=== PATIENT | male | born 1940 | race Caucasian/White ===

== ENCOUNTER 2016-10-02 10:56 | Inpatient (IN) | payer MEDICARE, OTHER ==
--- NOTE | ~2016-10-02 | HP ---
History And Physical [place] [address] [facility] [place]. [address] NAME: KARI GAMBOA : 38 STATUS : ADM IN PAT#: [id number] AGE: 76 ADM/REG DATE : 10/02/16 MR#: [id number] REPORT SERV DATE: 10/02/16 DICTATED BY: GITA EATON DATE: 10/02/16 REPORT STATUS : Draft TRANSCRIBED BY: MODStephenie DATE: 10/02/16 DATE OF ADMISSION: 10/02/2016 CHIEF COMPLAINT: Brought into the ER today for worsening weakness. HISTORY OF PRESENT ILLNESS: This is a 76-year-old male who says he has not been feeling well, family says for about a week. The patient says it has not been quite that long. He has had some chest discomfort which has been off and on up to 5/10, which radiates down to his abdomen, can vary in quality, but it is a shooting pain. He says he thought initially this was due to his previous aneurysm for which he had stented about three years ago. He has not noticed anything that makes the pain better, has not noticed anything that particularly makes it worse including deep inspiration. He says in addition about a several days ago he had a coughing fit which since then he has been having issues with some confusion, disorientation, and worsening weakness to the point where he is unable to go the bathroom by himself. His daughter reports that she wanted to bring him to the ER yesterday, he was unable to clean himself up and did not want to come to the hospital. In the emergency room, imaging was done of his brain and his abdomen. He was given steroids, fluids, and Levaquin. He says he is already starting to feel somewhat better. He does report a history of some poor p.o. intake due to lack of appetite. He denies any dysuria, fevers, diarrhea. He does have a history of bladder cancer, but he reports that was about 10 years ago. REVIEW OF SYSTEMS: A full review of systems is obtained and is negative with the exception of above HPI. PAST MEDICAL HISTORY: Hypertension, history of aortic aneurysm status post stent, remote history over 10 years ago of bladder cancer, hypertension. FAMILY HISTORY: Includes two sisters with cancer, one of the breast and one of the lung cancer. His mother also had a history of lung cancer. SOCIAL HISTORY: Denies alcohol use. He does smoke and chew tobacco. 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 HOME MEDICATIONS: Amlodipine/benazepril 5/40 once daily, atenolol 25 p.o. b.i.d., and Plavix 75 mg daily. ALLERGIES: INCLUDE CORTISONE WHICH MAKES HIM JITTERY AND THEN DIAZEPAM WHICH CAUSED HYPERACTIVITY AND PERSONALITY CHANGES. PHYSICAL EXAMINATION: VITAL SIGNS: In the emergency room, temperature 96.8, blood pressure 182/66, pulse of 62, respiratory rate of 20, saturating 98% on room air. GENERAL: This is an elderly male, who appears chronically ill. HEENT: Dry mucous membranes. Sclerae are anicteric. Pupils are equal, round, and reactive to light. There is no evidence of mucositis. History And Physical [address] [address] NAME: KARI GAMBOA : 38 STATUS : ADM IN [facility]#: [id number] AGE: 76 ADM/REG DATE : 10/02/16 MR#: [id number] REPORT SERV DATE: 10/02/16 DICTATED BY: GITA EATON DATE: 10/02/16 REPORT STATUS : Draft TRANSCRIBED BY: KATIE DATE: 10/02/16 NECK: Supple. LUNGS: Demonstrate decreased breath sounds at the left upper lung. Right is clear to auscultation, although diminished. Normal respiratory effort. ABDOMEN: Soft, nontender, nondistended. NEURO: Cranial nerves II through XII appear grossly intact. Face is symmetric. Tongue is midline. Speech is fluent. EXTREMITIES: Lower extremities are warm and well perfused with no evidence of lower extremity edema. PSYCHIATRIC: The patient is somewhat tearful, although appropriate and cooperative. IMAGING: In the ER, portable chest x-ray with, impression, multifocal consolidation involving left upper and lower lobe, it is asymmetric to the right side concerning for multifocal pneumonia in proper clinical setting. CT of the brain without contrast, impression, no acute abnormality. Mild atrophic changes and old deep white matter ischemic changes. CT chest, abdomen, and pelvis with contrast, impression: 1. Dense complete consolidation of the left upper lobe with heterogeneous enhancement pattern centrally about the central hilum and truncation/obstruction of the underlying left upper lobe bronchus. This suggests a central obstructing lung mass, possibly with superimposed post obstructive pneumonia. 2. Ill-defined interstitial infiltrate, superior segment, left lower lobe. May represent a superimposed pneumonia versus interstitial spread of malignancy. 3. Scattered noncalcified pulmonary nodules remaining left lower lobe and right upper middle and right lower lobe, largest right-sided pulmonary nodule 2.4 cm consistent with widespread pulmonary metastatic disease pattern. 4. Mildly enlarged periaortic lymph node measuring 12 mm diameter either reactive adenopathy or alaina metastatic disease. Abdomen and pelvis, impression: 1. Ovoid low-density soft tissue nodule superimposed over the upper midline omentum anterior to the lower margin of the stomach suggesting omental metastatic disease. 2. Chronic renal cortical scarring upper pole right kidney. 3. Prostate enlargement of 5.8 cm diameter suggesting benign prostatic hypertrophy, although request correlation with PSA levels if not previously performed. 4. Unremarkable appearance of the bladder. 5. Lccao-ip-pdmab stent graft. LABORATORY DATA: White blood cell count 12.5, hemoglobin 14.5, platelet count of 215. INR of 1.2. Serum sodium 143, potassium 3.8, chloride 107, CO2 of 26, BUN 16, creatinine 1, calcium 8.8, and albumin 3.1. LFTs unremarkable, although alkaline phosphatase is 133. UA with trace ketones. ASSESSMENT AND PLAN: This is a 76-year-old male presenting with weakness and substernal chest pain. 1. Mediastinal mass with suspected postobstructive pneumonia and lesions concerning for underlying metastatic malignancy. We will ask Dr. Brewster, his on-call for Pulmonary, to evaluate CT and consider bronchoscopy for definitive diagnosis. In the interim, we History And Physical [address] [address] NAME: KARI GAMBOA : 38 STATUS : ADM IN PAT#: [id number] AGE: 76 ADM/REG DATE : 10/02/16 MR#: [id number] REPORT SERV DATE: 10/02/16 DICTATED BY: GITA EATON DATE: 10/02/16 REPORT STATUS : Draft TRANSCRIBED BY: MODL DATE: 10/02/16 will start him on Zosyn, provide nebulizer treatments as well as guaifenesin in hopes of relieving some of the obstruction and/or helping him feel better. In the interim, while we wait for diagnosis, we will ask Pulmonary input. 2. Hypertension. Continue home medication with parameters. 3. History of aortic aneurysm, status post stenting. We will hold Plavix in case the patient needs biopsy. I will resume when able. 4. History of bladder cancer. Unclear history regarding his bladder cancer and may need to obtain these records when the weekend is over. 5. Anorexia with unquantifiable possible weight loss. The patient likely has a component of some beginnings of mild malnutrition. We will ask Nutrition to see the patient. He will be placed on a regular diet. We will add Ensure as well. 6. Tobacco abuse. We will provide nicotine patch as needed for Mr. Gamboa. 7. Substernal chest pain. This has been going on for some time, although worsening over the past week. This is not consistent with ACS, although we will check a baseline EKG. We will provide tramadol. The patient is very wary of taking any narcotics, so we would encourage him to try tramadol to see if it worse at least in the acute setting. 8. Code status is limited. The patient does not wish to have compressions or be on a ventilator. 9. Deep vein thrombosis prophylaxis will be with SCDs pending any possible need for bronchoscopy. DNK/MODL Gita Eaton MD / [id number] CC: MD Romeo Gallo M.D.
--- NOTE | ~2016-10-02 | CN ---
Consultation Report [place] [id number] [facility] [place]. [address] NAME: KARI GAMBOA : 38 STATUS : ADM IN [facility]#: [id number] AGE: 76 ADM/REG DATE : 10/02/16 MR#: [id number] REPORT SERV DATE: 10/03/16 DICTATED BY: MONIE BREWSTER DATE: 10/03/16 REPORT STATUS : Draft TRANSCRIBED BY: MODStephenie DATE: 10/03/16 PULMONARY CONSULTATION DATE OF CONSULTATION: 10/03/2016 REASON FOR CONSULTATION: Lung mass. CHIEF COMPLAINT: Not feeling well for the last couple of weeks. HISTORY OF PRESENT ILLNESS: Mr. Gamboa is a 76-year-old gentleman with a past medical history of underlying bladder cancer who presented with several days of worsening weakness, but also loss of appetite over the last couple of weeks and loss of weight. The patient notes that his muscles have deteriorated in the last couple of months. Also, he has had a slight cough, but no significant sputum production. Family brought him to the emergency room. He was seen in the hospital deng, the patient got some IV fluids and states that he feels better, but not completely relieved with his weight loss and energy loss. PAST MEDICAL HISTORY: Aortic aneurysm, status post endovascular stent; hypertension; history of bladder cancer. HOME MEDICATIONS: Home medication list reviewed, he is on Plavix and last took Plavix on 10/01/2016. ALLERGIES: DIAZEPAM, CORTISONE. SOCIAL HISTORY: The patient currently does not smoke or use any illicit drug use, has family support. FAMILY HISTORY: One sister with breast cancer, the other sister with lung cancer, mother also had lung cancer. REVIEW OF SYSTEMS: All pertinent review of systems reviewed and is otherwise negative. PHYSICAL EXAMINATION: VITAL SIGNS: Afebrile, heart rate 60s, respiratory rate 16 to 18, oxygen saturation 94% to 95% on room air, blood pressure currently systolic up to 150s to 160s. GENERAL: The patient is up in a chair, no acute distress. HEENT: No JVD, no cervical lymphadenopathy. PULMONARY: Clear to auscultation bilaterally with decreased breath sounds in the left lateral area. CARDIAC: Regular rate, no murmurs. ABDOMEN: Soft, nontender, nondistended. EXTREMITIES: No lower extremity edema. No cyanosis. Peripheral pulses noted. Consultation Report [facility] [address] [facility] [place]. [address] NAME: KARI GAMBOA : 38 STATUS : ADM IN [facility]#: [id number] AGE: 76 ADM/REG DATE : 10/02/16 MR#: [id number] REPORT SERV DATE: 10/03/16 DICTATED BY: MONIE BREWSTER DATE: 10/03/16 REPORT STATUS : Draft TRANSCRIBED BY: MODL DATE: 10/03/16 LABORATORY EXAMINATION: Mild leukocytosis. Negative procalcitonin. Adequate kidney function. Mild hypercholesterolemia. Urinalysis: Moderate blood in the urine. Chest Imaging: CT scan shows large left-sided lung mass concerning for metastatic neoplasm as there are multiple pulmonary nodules on the right side also. ASSESSMENT AND PLAN: Mr. Gamboa is a 76-year-old gentleman with a past medical history of an abdominal aortic aneurysm and bladder cancer who presents to the Pulmonary Consult Service with what seems to be a metastatic cancer, unclear whether this is a primary lung cancer with metastatic bladder cancer or just metastatic bladder cancer. At this moment in time, the patient is on day #2 of Plavix washout, he will be amenable for bronchoscopy in the next three days. Thank you very much for this consultation and allowing us to participate in his patient's care. Plavix is currently on hold as this was for his abdominal aortic aneurysm. HFQ/MODL Monie Brewster MD / [id number] CC: MD Romeo Gallo M.D.
--- NOTE | ~2016-10-02 | OP ---
Record Of Operation [facility] [address] [place]. [address] NAME: KARI GAMBOA : 38 STATUS : ADM IN PAT#: [id number] AGE: 76 ADM/REG DATE : 10/02/16 MR#: [id number] REPORT SERV DATE: 10/07/16 DICTATED BY: NADIR MIRANDA DATE: 10/07/16 REPORT STATUS : Draft TRANSCRIBED BY: KATIE DATE: 10/07/16 DATE OF PROCEDURE: 10/07/2016 TIME: 1130 hours. PROCEDURE: Ultrasound guided left-sided Thoracentesis INDICATION: A moderate left-sided pleural effusion. PROCEDURE COMMUNITY EDUCATION SPECIALIST: Aden Miranda PA-C. CONSENT: Consent was obtained from the patient prior to the procedure. Diagnostic and therapeutic indications for thoracentesis were discussed as well as risks including life- threatening bleeding, pneumothorax, and even the possible necessity of chest tube placement. Benefits and alternatives were explained at length. Prior to the procedure, imaging studies were reviewed with Dr. Vargas who agreed with the indication to proceed with thoracentesis. PROCEDURE SUMMARY: A time out was performed verifying correct patient, procedure, site, and positioning. The patient's left side of the chest was prepped and draped in a sterile manner using chlorhexidine scrub after the appropriate level was percussed and confirmed by ultrasound. U/S images were obtained and placed within the chart. 2% lidocaine with epinephrine was then used to anesthetize the region. A finder needle was then used to aspirate straw-colored fluid. A 10-blade scalpel was then used to make a small incision. The thoracentesis catheter was then threaded into the pleural space without difficulty. The patient had 400 mL of straw-colored fluid removed. Towards the end of procedure, the patient did develop some very mild left-sided pleuritic pain. Certainly, there was a concern of some degree of lung entrapment and as such, the procedure was stopped at this time. There were no immediate complications were noted during the procedure. A postprocedural chest x-ray is pending at the time of this dictation. The fluid will be sent for several studies. Estimated blood loss was minimal. GBS/ANISAL Nadir Miranda PA-C / [id number] CC: MD Romeo Chavarria II, M.D.
--- NOTE | ~2016-10-02 | DS ---
Discharge Summary [place] [address] [place]. [address] NAME: KARI GAMBOA : 38 STATUS : DIS IN PAT#: [id number] AGE: 76 ADM/REG DATE : 10/02/16 MR#: [id number] REPORT SERV DATE: 10/08/16 DICTATED BY: DATE: REPORT STATUS : Draft TRANSCRIBED BY: MODL DATE: 10/07/16 ADMISSION DATE: 10/02/2016 DISCHARGE DATE: 10/07/2016 DISCHARGE DIAGNOSES: 1. Left upper lobe consolidation. 2. Suspected postobstructive pneumonia. 3. Left pleural effusion. 4. Hypertension. 5. Acute dizziness. 6. Leukocytosis. 7. Acute blood loss anemia, mild. 8. Chronic obstructive pulmonary disease. CONSULTATIONS: 1. HINA Rosado, Pulmonology. 2. Dr. Osvaldo Arce, Oncology. PERTINENT TESTS AND PROCEDURES: 1. Chest x-ray, 10/02/2016, impression: Multifocal consolidation involving left upper and left lower lobe, asymmetric to the right side concerning for multifocal pneumonia. 2. CT of the brain without contrast, 10/02/2016, impression: No acute abnormality. Mild atrophic changes and old deep white matter ischemic changes. 3. CT of abdomen and pelvis without contrast, 10/02/2016, impression: Area of increased density in the fat between transverse colon and anterior abdominal wall consistent with an omental infarction. Area measures 4.2 cm x 4.2 cm x 2.5 cm. Numerous pulmonary nodules consistent with hematogenous metastases, largest measuring 2 cm x 2 cm. Enlarged prostate gland. 4. CT of the chest with contrast, 10/02/2016, impression:. a. Dense complete consolidation of left upper lobe with heterogeneous enhancement pattern centrally about the central hilum and truncation/obstruction of underlying left upper lobe bronchus. This suggest a central obstructing lung mass, possibly with superimposed postobstructive pneumonia. b. Ill-defined interstitial infiltrates superior segment left lower lobe, may represent superimposed pneumonia versus interstitial spread of malignancy. c. Scattered noncalcified pulmonary nodules, remaining left lower lobe and right upper lobe middle and right lower lobe, largest right-sided pulmonary nodule 2.4 cm consistent with a widespread pulmonary metastatic disease pattern. d. Mildly enlarged paraaortic lymph node measuring 12 mm diameter either reactive adenopathy or alaina metastatic disease. 5. Chest x-ray, 10/06/2016, impression: Progressive opacification of the left hemothorax with only aeration of the left lung base. Likely representing a combination of lung consolidation and pleural fluid. No postprocedure pneumothorax seen. 6. Chest x-ray, 10/07/2016, impression: Improving left infiltrate, status post bedside thoracentesis. 7. Bronchoscopy, 10/06/2016, impression: Rapid on-site evaluation. Preliminary cytology Discharge Summary [address] [address] NAME: KARI GAMBOA : 38 STATUS : DIS IN PAT#: [id number] AGE: 76 ADM/REG DATE : 10/02/16 MR#: [id number] REPORT SERV DATE: 10/08/16 DICTATED BY: DATE: REPORT STATUS : Draft TRANSCRIBED BY: MODL DATE: 10/07/16 is positive for malignancy and suspicious for adenocarcinoma, final results pending. Endobronchial biopsy was performed. Brushings were obtained. Bronchioloalveolar lavage was performed. Ablation of friable tumor performed in left upper lobe. 8. Bedside thoracentesis, performed 10/07/2016, ultrasound-guided, 400 mL yellow fluid evacuated. CHIEF COMPLAINT UPON ADMISSION: Worsening weakness. HOSPITAL COURSE: Please refer to history and physical dated 10/02/[address] Mane Eaton for complete details pertaining to the patient's initial presentation upon admission and health history. Please refer to consultation dated 10/03/[address] Monie Brewster, Pulmonology. Briefly, the patient is a 76-year-old male who presented to the emergency department on 10/02/2016, with complaints of worsening weakness to the point where he was unable to perform activities of daily living unassisted. The patient also complained of chest discomfort, radiating from his chest down to his abdomen. The patient also complained of intermittent bouts of confusion and disorientation over the past several days. Initial evaluation and diagnostic imaging indicated mediastinal mass was suspected, postobstructive pneumonia, and lesions concerning for an underlying metastatic malignancy. The patient was started on Zosyn, nebulizer treatment, and guaifenesin M, was admitted for further evaluation treatment and recommendations. 1. Left upper lung consolidation with suspected postobstructive pneumonia. 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 The patient will follow up with Dr. Osvaldo Arce next week for review of pathology report and future plan of care. 2. Left pleural effusion. The patient underwent ultrasound-guided left-sided thoracentesis today. The patient tolerated the procedure without immediate complications during intervention. Approximately 400 mL of straw color fluid was evacuated. Fluid was sent for several studies. Results to be followed up outpatient with Oncology. 3. Mild acute blood loss anemia. This is likely secondary to bronchoscopy performed on 10/06/2016. At the time of discharge, the patient's hemoglobin and hematocrit were stable at 13.3 and 39.9. 4. Leukocytosis. This is likely related to suspected postobstructive pneumonia. At the time of admission, the patient's white blood cell count was 12.5 and it trended up to 14.9, however, with the initiation of Zosyn the patient's white blood count trended down to 11.8 on 10/06/2016. White blood cell count spiked to 14.5 on 10/07/2016, however, this was most likely due to inflammatory response secondary to bronchoscopy performed the day before. The patient remained on Zosyn throughout this admission until 10/06/2016 and was it transitioned to Augmentin 875/125 mg tablet p.o. b.i.d. x5 more days. Therapy will be completed on 10/11/2016 p.m. 5. Atypical left-sided chest pain. This pain radiates down into abdomen, most likely related to left lung pleural effusion and left upper lobe consolidation. Serial troponins were obtained upon admission and were negative. Discharge Summary [address] [address] NAME: KARI GAMBOA : 38 STATUS : DIS IN PAT#: [id number] AGE: 76 ADM/REG DATE : 10/02/16 MR#: [id number] REPORT SERV DATE: 10/08/16 DICTATED BY: DATE: REPORT STATUS : Draft TRANSCRIBED BY: KATIE DATE: 10/07/16 6. Hypertension. The patient takes home medication to include Lotrel 5 mg/40 mg caplet and atenolol 25 mg tablet p.o. daily. During this admission, amlodipine was increased to 10 mg daily. The patient declined to continue increased dose of blood pressure medication at home due to belief that hypertension was related to stress of hospitalization. The patient will monitor blood pressure at home daily with daughter's assistance and contact Dr. Crawford, Cardiology, if systolic pressure remained high and there is indication for medication adjustment. 7. Acute dizziness x1 episode this morning. May have been related to mild dehydration. The patient has been n.p.o. for quite some time, awaiting bronchoscopy and then for thoracentesis. Orthostatic vital signs were obtained. No indication for fluid resuscitation at the time of discharge, symptoms had resolved. 8. COPD. The patient was long time tobacco user prior to this admission. The patient stated he will no longer smoke and is denying patch for cessation assistance. DISCHARGE CONDITION: At the time of discharge, the patient was hemodynamically stable. DISCHARGE DIET: Regular diet as tolerated. DISCHARGE MEDICATIONS: 1. Lotrel 5 mg/40 mg tablet, take one tablet p.o. daily. 2. Tenormin 25 mg tablet p.o. twice daily. 3. Guaifenesin 1200 mg p.o. twice daily. 4. Habitrol 14 mg patch topically daily, if the patient decides to use to assist with smoking cessation, refused during hospitalization. 5. MiraLAX 17 g p.o. daily. 6. Plavix 75 mg tablet daily, per pharm restart 10/08/2016 a.m. status post thoracentesis. 7. Breo Ellipta 200 mcg/5 mcg one puff daily. 8. Albuterol metered dose inhaler two puffs every four hours as needed. 9. Augmentin 875 mg/125 mg tablet one tablet p.o. twice daily through 10/11/2016 p.m. 10.Spiriva Respimat 2.5 mcg two puffs daily. DISCHARGE INSTRUCTIONS: 1. Follow up with Dr. Arce, [facility], 10/14/2016 at 1:45 p.m. 2. Follow up with Dr. Brewster, Pulmonology, 11/16/2016 at 2:45 p.m. 3. Follow up with Dr. Vargas, Pulmonology, in four weeks. Office is to call the patient and arrange appointment. The patient and his daughter were instructed to return to the emergency department for any acute onset of shortness of breath, dyspnea on exertion, hemoptysis, fever of 100.4 or greater lasting more than one hour; intractable fever, chills, rigors, nausea, vomiting, diarrhea, or any other concerns that are deviations from his baseline health status at the time of this discharge. ZACH/KATIE Discharge Summary [place] [address] [place] [address] NAME: KARI GAMBOA : 38 STATUS : DIS IN PAT#: [id number] AGE: 76 ADM/REG DATE : 10/02/16 MR#: [id number] REPORT SERV DATE: 10/08/16 DICTATED BY: DATE: REPORT STATUS : Draft TRANSCRIBED BY: KATIE DATE: 10/07/16 ZAK Moraes / [id number] CC: MD Romeo Chavarria II, M.D.
--- NOTE | ~2016-10-02 | EGD ---
EGD REPORT [facility] [address] [id number] NAME: KARI GAMBOA : 36 STATUS : ADM IN PAT#: [id number] AGE: 76 ADM/REG DATE : 10/02/16 MR#: [id number] REPORT SERV DATE: 10/06/16 DICTATED BY: SUGAR MONTOYA DATE: 10/06/16 REPORT STATUS : Draft [facility] DATE: 10/06/16 Pulmonology Patient Name: Kari Gamboa Procedure Date: 10/06/2016 8:57 AM Date of : 1940 Attending MD: MAURO MONTOYA MD Procedure Date No Time: 10/06/2016 Procedure: Bronchoscopy Indications: NHAN atalectesis with suspected endobronchial involvemen Providers: MAURO MONTOYA MD Referring MD: Mane Eaton Medicines: Lidocaine 2% 20 mL; topical epinephrine [id number] ccs Complications: No immediate complications Procedure: Pre-Anesthesia Assessment: - ASA Grade Assessment: III - A patient with severe systemic disease. - A History and Physical has been performed. Patient meds and allergies have been reviewed. The risks and benefits of the procedure and the sedation options and risks were discussed with the patient. All questions were answered and informed consent was obtained. Patient identification and proposed procedure were verified prior to the procedure by the physician and the nurse in the pre-procedure area in the procedure room. Mental Status Examination: alert and oriented. Airway Examination: normal oropharyngeal airway. Respiratory Examination: poor air movement. CV Examination: normal and RRR, no murmurs, no S3 or S4. ASA Grade Assessment: III - A patient with severe systemic disease. After reviewing the risks and benefits, the patient was deemed in satisfactory condition to undergo the procedure. The anesthesia plan was to use general anesthesia. Immediately prior to administration of medications, the patient was re-assessed for adequacy to receive sedatives. The heart rate, respiratory rate, oxygen saturations, blood pressure, adequacy of pulmonary ventilation, and response to care were monitored throughout the procedure. The physical status of the patient was re-assessed after the procedure. After obtaining informed consent, the Bronchoscope was introduced through the mouth, via the endotracheal tube (the patient was intubated for the procedure) and advanced to the tracheobronchial tree. the BF [id number] was introduced through the mouth, via the endotracheal tube (the patient was intubated for the EGD REPORT [address] [address] NAME: KARI GAMBOA : [birth year] STATUS : ADM IN [facility]#: [id number] AGE: 76 ADM/REG DATE : 10/02/16 MR#: [id number] REPORT SERV DATE: 10/06/16 DICTATED BY: SUGAR MONTOYA DATE: 10/06/16 REPORT STATUS : Draft [facility]: [facility] DATE: 10/06/16 procedure) and advanced to the tracheobronchial tree. The procedure was accomplished without difficulty. The patient tolerated the procedure well. Findings: The endotracheal tube is in good position. The visualized portion of the trachea is of normal caliber. The shayna is sharp. The tracheobronchial tree was examined to at least the first subsegmental level. Abnormal bronchial mucosa with tumor involvement noted in the NHAN. Puckering and edema noted in all NHAN subsegments. Endobronchial biopsies were performed in the left upper lobe of the lung using a forceps and sent for histopathology examination. Three samples were obtained. Brushings were obtained in the left upper lobe of the lung and sent for routine cytology. One sample was obtained. Bronchoalveolar lavage was performed in the left upper lobe of the lung and sent for routine cytology. 180 mL of fluid were instilled. 30 mL were returned. The return was bloody and cellular. EBUS TBNA of lymph node level 11L x 7 passes for cytology The FiO2 was lowered to less than 40% and argon plasma coagulation therapy (0.8 L/min, 15 Gamboa) was performed at the [facility] for destruction of the tissue. 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 - An endobronchial biopsy was performed. - Brushings were obtained. - Bronchoalveolar lavage was performed. - Ablation of friable tumor performed in the NHAN Recommendation: - Await test results. - Refer to/consult with Oncology. - PET scan. - MRI of the brain with and without contrast Attending Participation: I personally performed the entire procedure. MAURO MONTOYA MD 10/06/2016 9:47 AM This report has been signed electronically. Number of Addenda: 0 Note Initiated On: 10/06/2016 8:57 AM [address] [id number]
[2016-10-02 10:44] LABS: BASOPHILS 0.2 %; BASOPHILS ABSOLUTE 0.02 10/3/uL (0.0-0.16); EOSINOPHILS 0.1 %; EOSINOPHILS ABSOLUTE 0.01 10/3/uL (0.0-0.53); HEMATOCRIT 43.3 % (40.0-51.0); HEMOGLOBIN 14.5 g/dL (13.6-17.8); IMMATURE GRANULOCYTES 0.3 %; IMMATURE GRANULOCYTES ABSOLUTE 0.04 10/3/uL (0.0-0.11); LYMPHOCYTES 5.8 %; LYMPHOCYTES ABSOLUTE 0.73 10/3/uL (0.67-4.30); MEAN CORPUS HGB CONC 33.5 g/dL (32.0-36.0); MEAN CORPUSCULAR HEMOGLOB 30.5 pg (26.0-34.0); MEAN CORPUSCULAR VOLUME 91.2 fL (80-100); MEAN PLATELET VOLUME 10.1 fL (9.2-13.0); MONOCYTES 4.6 %; MONOCYTES ABSOLUTE 0.58 10/3/uL (0.21-1.20); NEUTROPHILS ABSOLUTE 11.12 10/3/uL (2.02-8.40); PLATELET COUNT 215 10/3/uL (150-400); RBC DISTRIBUTION WIDTH 13.5 % (12.0-16.0); RED CELL COUNT 4.75 10/6/uL (4.7-6.1)
[2016-10-02 10:48] LABS: ER CBC TAT 0 Hrs 12 Mins; MANUAL DIFF NO %; WHITE BLOOD CELLS 12.5 10/3/uL (4.5-10.5)
[2016-10-02 10:51] LABS: ASCORBIC ACID (UR NOT ORDER) NEG (NEG); BILIRUBIN, URINE NEGATIVE (NEG); ER URINALYSIS TAT 0 Hrs 10 Mins; KETONE, URINE TRACE MG/DL (NEG); LEUKOCYTE ESTERASE(NOT OR NEG (NEG); NITRITE (URINE) NEG (NEG); WBC (NOT ORDERED) (RFLEX) 1 (0-5)
[2016-10-02 10:52] LABS: INTERNATIONAL NORMAL RATI 1.2 UNITS (-); PARTIAL THROMBO TIME 30.8 SEC (22.5-37.2)
[2016-10-02 10:56] LABS: PROTIME (NOT ORD) 14.8 SEC (12.0-14.5)
[~2016-10-02 10:56] MED LIST: ASA5GR PO; ATEN25 PO; CIP5 PO; LOTREL1 CA3 PO; PCET PO; PLAVIX PO; V5 PO; VICODINTAB PO
[2016-10-02 11:02] LABS: A/G RATIO 0.8 (0.7-1.9); ALBUMIN 3.1 G/DL (3.5-5.0); ALKALINE PHOSPHATASE 133 U/L (45-117); BUN (BLOOD UREA NITROGEN) 16 MG/DL (6-23); CALCIUM, SERUM 8.8 MG/DL (8.5-10.4); CHLORIDE, SERUM 107 MMOL/L (96-112); CO2 (CARBON DIOXIDE) 26 MMOL/L (24-34); CREATININE 1.01 MG/DL (0.70-1.30); GFR AFRICAN AMERICAN 82 ML/MIN (>=60); GFR NON AFRICAN AMERICAN 71 ML/MIN (>=60); GLOBULIN 4.1 G/DL (2.5-4.1); GLUCOSE, SERUM 136 MG/DL (60-99); POTASSIUM, SERUM 3.8 MMOL/L (3.5-5.3); SGOT(AST) 36 U/L (5-40); SGPT(ALT) 46 U/L (5-65); SODIUM, SERUM 143 MMOL/L (135-148); TOTAL BILIRUBIN 1.2 MG/DL (0-1.2); TOTAL PROTEIN 7.2 G/DL (6.0-8.5); TROPONIN I <0.02 NG/ML (<0.05)
[2016-10-02] MEDS ORDERED: ATEN25 PO (11:02)
[2016-10-02] MEDS ORDERED: LOTREL1 CA3 PO (11:02)
[2016-10-02] MEDS ORDERED: PLAVIX PO (11:02)
[2016-10-02 11:04] LABS: INFLUENZA A SCREEN NEGATIVE (NEGATIVE); INFLUENZA B SCREEN NEGATIVE (NEGATIVE)
[2016-10-03 06:40] LABS: BASOPHILS 0.1 %; BASOPHILS ABSOLUTE 0.01 10/3/uL (0.0-0.16); EOSINOPHILS 0 %; HEMATOCRIT 42.9 % (40.0-51.0); HEMOGLOBIN 14.4 g/dL (13.6-17.8); IMMATURE GRANULOCYTES 0.3 %; IMMATURE GRANULOCYTES ABSOLUTE 0.05 10/3/uL (0.0-0.11); LYMPHOCYTES 6.5 %; LYMPHOCYTES ABSOLUTE 0.96 10/3/uL (0.67-4.30); MANUAL DIFF NO %; MEAN CORPUS HGB CONC 33.6 g/dL (32.0-36.0); MEAN CORPUSCULAR VOLUME 92.3 fL (80-100); MEAN PLATELET VOLUME 10.2 fL (9.2-13.0); MONOCYTES 5.3 %; MONOCYTES ABSOLUTE 0.78 10/3/uL (0.21-1.20); NEUTROPHILS 87.8 %; NEUTROPHILS ABSOLUTE 13.05 10/3/uL (2.02-8.40); PLATELET COUNT 201 10/3/uL (150-400); RBC DISTRIBUTION WIDTH 13.5 % (12.0-16.0); RED CELL COUNT 4.65 10/6/uL (4.7-6.1); WHITE BLOOD CELLS 14.9 10/3/uL (4.5-10.5)
[2016-10-03 06:52] LABS: BUN (BLOOD UREA NITROGEN) 16 MG/DL (6-23); CALCIUM, SERUM 9.1 MG/DL (8.5-10.4); CHLORIDE, SERUM 109 MMOL/L (96-112); CO2 (CARBON DIOXIDE) 23 MMOL/L (24-34); CREATININE 1.26 MG/DL (0.70-1.30); GFR AFRICAN AMERICAN 63 ML/MIN (>=60); GFR NON AFRICAN AMERICAN 54 ML/MIN (>=60); GLUCOSE, SERUM 141 MG/DL (60-99); POTASSIUM, SERUM 3.7 MMOL/L (3.5-5.3); SODIUM, SERUM 144 MMOL/L (135-148)
[2016-10-04 05:10] LABS: BASOPHILS 0.1 %; BASOPHILS ABSOLUTE 0.01 10/3/uL (0.0-0.16); EOSINOPHILS 0.1 %; EOSINOPHILS ABSOLUTE 0.01 10/3/uL (0.0-0.53); HEMATOCRIT 42.1 % (40.0-51.0); HEMOGLOBIN 13.7 g/dL (13.6-17.8); IMMATURE GRANULOCYTES 0.4 %; IMMATURE GRANULOCYTES ABSOLUTE 0.05 10/3/uL (0.0-0.11); LYMPHOCYTES 11.6 %; LYMPHOCYTES ABSOLUTE 1.46 10/3/uL (0.67-4.30); MEAN CORPUS HGB CONC 32.5 g/dL (32.0-36.0); MEAN CORPUSCULAR HEMOGLOB 29.8 pg (26.0-34.0); MEAN CORPUSCULAR VOLUME 91.7 fL (80-100); MONOCYTES 6.9 %; MONOCYTES ABSOLUTE 0.86 10/3/uL (0.21-1.20); NEUTROPHILS 80.9 %; NEUTROPHILS ABSOLUTE 10.16 10/3/uL (2.02-8.40); PLATELET COUNT 187 10/3/uL (150-400); RED CELL COUNT 4.59 10/6/uL (4.7-6.1); WHITE BLOOD CELLS 12.6 10/3/uL (4.5-10.5)
[2016-10-04 05:13] LABS: MANUAL DIFF NO %
[2016-10-04 05:21] LABS: BUN (BLOOD UREA NITROGEN) 19 MG/DL (6-23); CALCIUM, SERUM 8.8 MG/DL (8.5-10.4); CHLORIDE, SERUM 110 MMOL/L (96-112); CREATININE 1.17 MG/DL (0.70-1.30); GFR AFRICAN AMERICAN 69 ML/MIN (>=60); GFR NON AFRICAN AMERICAN 59 ML/MIN (>=60); SODIUM, SERUM 145 MMOL/L (135-148)
[2016-10-04 05:22] LABS: CO2 (CARBON DIOXIDE) 28 MMOL/L (24-34); GLUCOSE, SERUM 104 MG/DL (60-99)
[2016-10-06 04:18] LABS: BASOPHILS 0.2 %; BASOPHILS ABSOLUTE 0.02 10/3/uL (0.0-0.16); EOSINOPHILS 0.6 %; EOSINOPHILS ABSOLUTE 0.07 10/3/uL (0.0-0.53); HEMATOCRIT 41.6 % (40.0-51.0); HEMOGLOBIN 13.9 g/dL (13.6-17.8); IMMATURE GRANULOCYTES 0.6 %; IMMATURE GRANULOCYTES ABSOLUTE 0.07 10/3/uL (0.0-0.11); LYMPHOCYTES 11.1 %; LYMPHOCYTES ABSOLUTE 1.31 10/3/uL (0.67-4.30); MANUAL DIFF NO %; MEAN CORPUS HGB CONC 33.4 g/dL (32.0-36.0); MEAN CORPUSCULAR HEMOGLOB 31.1 pg (26.0-34.0); MEAN CORPUSCULAR VOLUME 93.1 fL (80-100); MEAN PLATELET VOLUME 10.6 fL (9.2-13.0); MONOCYTES 7.5 %; MONOCYTES ABSOLUTE 0.89 10/3/uL (0.21-1.20); NEUTROPHILS ABSOLUTE 9.46 10/3/uL (2.02-8.40); PLATELET COUNT 161 10/3/uL (150-400); RBC DISTRIBUTION WIDTH 13.8 % (12.0-16.0); RED CELL COUNT 4.47 10/6/uL (4.7-6.1); WHITE BLOOD CELLS 11.8 10/3/uL (4.5-10.5)
[2016-10-06 04:23] LABS: INTERNATIONAL NORMAL RATI 1.2 UNITS (-); PROTIME (NOT ORD) 14.7 SEC (12.0-14.5)
[2016-10-06 08:16] LABS: PARTIAL THROMBO TIME 30.9 SEC (22.5-37.2)
[2016-10-06 14:54] LABS: BD FL LYMPH (NOT ORD) 10 %; BF BASO (NOT OF) 0 %; BF LARGE MONONUCLEAR 13 %; BF TOTAL CELL CT (NOT ORD 881 /MM3; BODY FLUID EOS (NOT ORD) 0 %; BODY FLUID SEG (NOT ORD) 77 %
[2016-10-06 14:55] LABS: BODY FLUID RBC (NOT ORD) 233000 /MM3
[2016-10-06 14:57] LABS: BD FL SOURCE (NOT ORD) BAL
[2016-10-07 04:34] LABS: BASOPHILS 0.1 %; BASOPHILS ABSOLUTE 0.01 10/3/uL (0.0-0.16); EOSINOPHILS 0.1 %; EOSINOPHILS ABSOLUTE 0.01 10/3/uL (0.0-0.53); HEMATOCRIT 39.9 % (40.0-51.0); HEMOGLOBIN 13.3 g/dL (13.6-17.8); IMMATURE GRANULOCYTES 0.5 %; IMMATURE GRANULOCYTES ABSOLUTE 0.07 10/3/uL (0.0-0.11); LYMPHOCYTES 9.4 %; LYMPHOCYTES ABSOLUTE 1.36 10/3/uL (0.67-4.30); MEAN CORPUS HGB CONC 33.3 g/dL (32.0-36.0); MEAN CORPUSCULAR HEMOGLOB 31.1 pg (26.0-34.0); MEAN CORPUSCULAR VOLUME 93.4 fL (80-100); MEAN PLATELET VOLUME 10.6 fL (9.2-13.0); MONOCYTES 6.1 %; MONOCYTES ABSOLUTE 0.88 10/3/uL (0.21-1.20); NEUTROPHILS 83.8 %; NEUTROPHILS ABSOLUTE 12.14 10/3/uL (2.02-8.40); PLATELET COUNT 183 10/3/uL (150-400); RBC DISTRIBUTION WIDTH 13.8 % (12.0-16.0); RED CELL COUNT 4.27 10/6/uL (4.7-6.1); WHITE BLOOD CELLS 14.5 10/3/uL (4.5-10.5)
[2016-10-07 04:35] LABS: A/G RATIO 0.8 (0.7-1.9); ALBUMIN 2.7 G/DL (3.5-5.0); ALKALINE PHOSPHATASE 107 U/L (45-117); BUN (BLOOD UREA NITROGEN) 21 MG/DL (6-23); CALCIUM, SERUM 9.1 MG/DL (8.5-10.4); CHLORIDE, SERUM 108 MMOL/L (96-112); CO2 (CARBON DIOXIDE) 29 MMOL/L (24-34); CREATININE 1.17 MG/DL (0.70-1.30); DIRECT BILIRUBIN 0.2 MG/DL (0.0-0.4); GFR AFRICAN AMERICAN 69 ML/MIN (>=60); GFR NON AFRICAN AMERICAN 59 ML/MIN (>=60); GLOBULIN 3.4 G/DL (2.5-4.1); GLUCOSE, SERUM 112 MG/DL (60-99); INDIRECT BILIRUBIN(NOT ORDER) 0.6 MG/DL (0.1-0.9); POTASSIUM, SERUM 4.3 MMOL/L (3.5-5.3); SGPT(ALT) 44 U/L (5-65); SODIUM, SERUM 144 MMOL/L (135-148); TOTAL BILIRUBIN 0.8 MG/DL (0-1.2); TOTAL PROTEIN 6.1 G/DL (6.0-8.5)
[2016-10-07 04:36] LABS: SGOT(AST) 24 U/L (5-40)
[2016-10-07 04:37] LABS: MANUAL DIFF NO %
[2016-10-07 12:22] LABS: PROCALCITONIN 0.05 ng/mL (<0.5)
[2016-10-07 13:47] LABS: GLUCOSE BODY FL (NOT ORD) 107 MG/DL; LDH BODY FLUID (NOT ORD) 184 U/L; PROTEIN BODY FLUID 3.7 G/DL
[2016-10-07 13:54] LABS: BD FL LYMPH (NOT ORD) 90 %; BF BASO (NOT OF) 1 %; BF LARGE MONONUCLEAR 0 %; BODY FLUID EOS (NOT ORD) 0 %; BODY FLUID SEG (NOT ORD) 9 %
[2016-10-07 13:55] LABS: BD FL SOURCE (NOT ORD) PLEURAL
[2016-10-07 14:19] LABS: BF TOTAL CELL CT (NOT ORD 1271 /MM3; BODY FLUID RBC (NOT ORD) 2776 /MM3
[2016-10-07] MEDS ORDERED: HUMI PO (15:29)
[2016-10-07] MEDS ORDERED: HABIT14 TOP (15:29)
[2016-10-07] MEDS ORDERED: AUG875 PO (15:30)
[2016-10-07] MEDS ORDERED: MIRALAX POWDER1 PKT PO (15:30)
[2016-10-07] MEDS ORDERED: BREO ELLIPTA INH (15:32)
[2016-10-07] MEDS ORDERED: SPIRIVA RESPIMAT INH (15:33)
[2016-10-07] MEDS ORDERED: PROAIR HFA INH (15:34)
== END 2016-10-07 16:13 | disposition home or self-care (01) | DRG 166 ==
LOC: ER 10:56 → 4EA 14:24
PROVIDERS: Emergency Medicine; Internal Medicine; Nurse Practitioner Family; Physician Assistant Medical
PROC: 0BBG8ZX Excision of Left Upper Lung Lobe, Via Natural or Artificial Opening Endoscopic, Diagnostic (ICD-10-PCS; principal; 2016-10-06 12:30)
PROC: 07974ZX Drainage of Thorax Lymphatic, Percutaneous Endoscopic Approach, Diagnostic (ICD-10-PCS; 2016-10-06 12:30)
PROC: 0W9B30Z Drainage of Left Pleural Cavity with Drainage Device, Percutaneous Approach (ICD-10-PCS; 2016-10-07)
DX: C34.90 Malignant neoplasm of unspecified part of unspecified bronchus or lung (principal); J18.9 Pneumonia, unspecified organism; J90 Pleural effusion, not elsewhere classified; D62 Acute posthemorrhagic anemia; J44.9 Chronic obstructive pulmonary disease, unspecified; I10 Essential (primary) hypertension; F17.210 Nicotine dependence, cigarettes, uncomplicated
CPT/HCPCS: 70450; 71010; 71260; 74176; 74177; 80048; 80053; 81001; 82248; 82945; 83036; 83615; 83690; 83986; 84145; 84157; 84484; 85025; 85610; 85730; 87015; 87040; 87070; 87102; 87116; 87205; 87804; 88112; 88172; 88173; 88305; 88333; 88341; 88342; 89051; 93005; 94640; 96365; 96375; 97161-GP; 99285; A9270-GY; C1725; G8978-CH-GP; G8979-CH-GP; G8980-CH-GP; J0360; J1956; J2405; J2543; J2710; J2930; J3010; Q9967